=== PATIENT | male | born 1980 | race Two or more races ===

== ENCOUNTER 2016-11-17 12:55 | Emergency (ER) | payer MEDICAID ==
[2016-11-17 13:09] VITALS: RESP 18; TEMP 99; O2SAT 97
--- NOTE | 2016-11-17 13:14 | EDPHY ---
H & P Stated Complaint: c/o L elbow pain /swelling/redness since last night Time Seen by Provider: 11/17/16 13:03 HPI/ROS: Chief Complaint: Elbow redness and pain HPI: 36-year-old male presenting with pain and tenderness over his left olecranon for the past day. Patient recently had a tattoo done last weekend but no significant redness until today. No fevers or chills. Has had a staph infection in the past. No fluid collections. No fevers or chills. No chest pain shortness of breath. ROS: 10 point Review of Systems is negative except as noted in the HPI. Physical Exam: General: Awake, alert, no acute distress Left elbow. He has got mild erythema with mild swelling isolated over his left olecranon. There is no boggy swelling or fluid collection. He does have new tattoos with some small areas of erythema. There is no confluent areas of erythema with that too. There is no tattooing over the olecranon. Skin: Per elbow exam - Personal History Current Tetanus Diphtheria and Acellular Pertussis (TDAP): Yes - Medical/Surgical History Other PMH: denies - Social History Smoking Status: Never smoked Constitutional: Initial Vital Signs Temperature (C) 37.2 C 11/17/16 13:08 Heart Rate 65 11/17/16 13:08 Respiratory Rate 18 11/17/16 13:08 Blood Pressure 125/67 H 11/17/16 13:08 O2 Sat (%) 97 11/17/16 13:08 O2 Delivery Mode Room Air Allergies/Adverse Reactions: Sulfa (Sulfonamide Antibiotics) Allergy (Verified 11/17/16 13:08) Home Medications: Medication Instructions Recorded Cephalexin [Keflex (*)] 500 mg PO Q6H #40 cap 11/17/16 Medical Decision Making ED Course/Re-evaluation: 36-year-old male with a recent tattoo of his left forearm now with redness is willing over his left olecranon. He does not have a large swelling in the bursa in symptoms are likely more consistent with an early cellulitis versus bursitis. It is mildly warm to the touch. Does not any fluctuance or fluid collections. Given his recent tattooing I am going to start him on oral Keflex with instructions to follow up with primary care physician next week for recheck. He will return for worsening. Departure - Departure Disposition: Home, Routine, Self-Care Clinical Impression: Cellulitis Condition: Good Instructions: Cellulitis (ED) Additional Instructions: Follow up with your primary care physician in 4-5 days for recheck. Return to the emergency department for increasing redness, increasing swelling, worsening pain, streaking up your arm, fevers, chills, or any other concerns. Please make sure to take her full course of antibiotics. Referrals: Marie Dixon [Other] - As per Instructions Prescriptions: Cephalexin [Keflex (*)] 500 mg PO Q6H #40 cap
[2016-11-17 18:37] VITALS: BP 124/62; PULSE 57
== END 2016-11-17 13:24 | disposition home or self-care (01) ==
LOC: CED 12:55
DX: L03.114 Cellulitis of left upper limb (principal)

== ENCOUNTER → 2016-12-19 | Emergency (ER) | payer MEDICAID ==
[~2016-12-19] MED LIST: CEPHALEXIN 500MG PREPACK#4 BTL TAKEHOME ONE
[2016-12-19 20:00] VITALS: BP 125/86; PULSE 67; RESP 16; TEMP 97.9; O2SAT 95
--- NOTE | 2016-12-19 20:25 | EDPHY ---
H & P Stated Complaint: pt. with rt knee erythema,swelling and pain x 4-5days. here elbow infe Time Seen by Provider: 12/19/16 19:54 HPI/ROS: Chief Complaint: Right knee redness HPI: 28-year-old male presenting with several days of right knee tenderness redness and swelling. Patient was seen by me a month ago with olecranon bursitis. He was started on Keflex and resolved. Patient has since had swelling similar to that below his right patella. Denies any traumatic injuries. He has not been having any trauma on that knee. He is not on his knees frequently for work. No fevers or chills. No streaking up his leg. ROS: 10 point Review of Systems is negative except as noted in the HPI. Family History: [non-contributory] Physical Exam: General: Awake, alert, no acute distress Right knee. There is mild tenderness and swelling over his prepatellar bursa of his right knee. He has no tenderness or flexion extension. There is no erythema or warmth over the knee joint. He symptoms fall entirely over the prepatellar bursa. There is tiny bit of fluctuance, no pointing. Neuro: Cranial nerves 2-12 are intact, sensation and strength normal bilateral upper lower extremities. - Medical/Surgical History Hx Asthma: No Hx Chronic Respiratory Disease: No Hx Diabetes: No Hx Cardiac Disease: No Hx Renal Disease: No Hx Cirrhosis: No Hx Alcoholism: No Hx HIV/AIDS: No Hx Splenectomy or Spleen Trauma: No Other PMH: med med hx-none. Surg-none - Social History Smoking Status: Never smoked Constitutional: Initial Vital Signs Temperature (C) 36.6 C 12/19/16 19:55 Heart Rate 67 12/19/16 19:55 Respiratory Rate 16 12/19/16 19:55 Blood Pressure 125/86 H 12/19/16 19:55 O2 Sat (%) 95 12/19/16 19:55 O2 Delivery Mode Room Air Allergies/Adverse Reactions: Sulfa (Sulfonamide Antibiotics) Allergy (Verified 12/19/16 19:54) Home Medications: Medication Instructions Recorded NK [No Known Home Meds] 12/19/16 Medical Decision Making ED Course/Re-evaluation: 28-year-old male presenting with symptoms consistent with prepatellar bursitis. History sleep treated successfully with Keflex for a olecranon bursitis. Denies any new traumas. Will start him on Keflex as a responded well last time. He will follow up with primary care physician, return for worsening. Departure - Departure Disposition: Home, Routine, Self-Care Clinical Impression: Bursitis Condition: Good Instructions: Knee Bursitis (ED) Additional Instructions: Please take her full course of antibiotics. Follow up with your primary care physician in 2-3 days for recheck. Return to the emergency department if the redness continues to spread, you have worsening pain, fevers, chills, or any other concerns. Referrals: NONE *PRIMARY CARE P,. [Primary Care Provider] - As per Instructions
== END | disposition home or self-care (01) ==
LOC: CED 19:45
DX: M70.51 Other bursitis of knee, right knee (principal)